=== PATIENT | male | born 1985 | race Caucasian/White ===

== ENCOUNTER 2016-10-21 18:56 | Emergency (ER) | payer OTHER ==
[2016-10-21 18:59] VITALS: BP 140/77; PULSE 74; RESP 18; TEMP 98.3
[2016-10-21] MEDS ORDERED: PROPARACAINE 0.5% OPHTH DROPS 15 ML BTL RIGHT EYE STA (19:22)
[2016-10-21] MEDS ORDERED: DIPH,PERTUS(ACELL)TETVAC-LF 0.5 ML VIAL IM ONE (19:35)
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
== END 2016-10-21 19:56 | disposition home or self-care (01) ==
LOC: EC 18:56
DX: S05.01XA Injury of conjunctiva and corneal abrasion without foreign body, right eye, initial encounter (principal); Z23 Encounter for immunization; W45.8XXA Other foreign body or object entering through skin, initial encounter
CPT/HCPCS: 90471; 90715; 99283

== ENCOUNTER 2023-12-26 18:43 | Emergency (ER) | payer OTHER ==
[2023-12-26 18:53] VITALS: TEMP 98.3
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
[2023-12-26] MEDS: KETOROLAC 15 MG/ML 1 ML VIAL IM STA (20:49)
[2023-12-26] MEDS: HYDROmorphone 0.5 MG/0.5 ML SYRINGE IM STA ×2 (20:50→22:27)
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
[2023-12-26] MEDS: ACET/COD 300 MG/30 MG STARTER PACK 6 TAB BTL PO STA (22:27)
[2023-12-26 22:34] VITALS: BP 137/81; PULSE 66; RESP 16
== END 2023-12-26 22:31 | disposition home or self-care (01) ==
LOC: EC 18:43
CPT/HCPCS: 96372; 99283

== ENCOUNTER → 2024-02-03 | Outpatient (CLI) | payer OTHER ==
--- NOTE | 2024-02-03 17:54 | CT ---
EXAMINATION TYPE: CT wrist RT wo con DATE OF EXAM: 02/03/2024 5:46 PM COMPARISON: 12/18/2023 CLINICAL INDICATION: Male, 38 years old with history of RIGHT WRIST RADIUS / SCAPHOID [id number] A; TECHNIQUE: Axial images were obtained of the CT wrist RT wo con, Additional coronal and sagittal refo rmatted images and soft tissue and bone window were obtained for review. 3-D reconstruction was creat ed on a separate workstation. Contrast used: mL of , (None if empty) Oral contrast used: (None if empty) CT DLP: mGycm, Automated exposure control for dose reduction was used. FINDINGS: * Comminuted distal radius fracture with intra-articular extension into the wrist and distal radioul greg joint. Minimal coronary resorptive changes no osseous bridging present. * Ulnar styloid process fracture with mild displacement. Intracranially osseous fusion with persist ent displacement. * Acute fracture through the mid scaphoid mild resorptive changes incomplete osseous fusion remains. IMPRESSION: Persistent comminuted distal intra-articular fracture of the radius. Persistent ulnar styloid process fracture. Persistent scaphoid fracture Incomplete osseous fusion of all the fractures. Continued attention on follow-up imaging no additiona l fractures visualized. [facility], , 02/03/2024 5:51 PM
== END | disposition home or self-care (01) ==
LOC: RADCTMAIN 17:08
PROVIDERS: ATTEND Orthopaedic Surgery
DX: S62.001A Unspecified fracture of navicular [scaphoid] bone of right wrist, initial encounter for closed fracture (principal); S52.571A Other intraarticular fracture of lower end of right radius, initial encounter for closed fracture